=== PATIENT | female | born 1985 | race Caucasian/White ===

== ENCOUNTER 2016-10-14 18:38 | Emergency (ER) | payer MEDICAID ==
[2016-10-14] MEDS ORDERED: ONDANSETRON 4 MG INJ ONE (20:45)
[2016-10-14] MEDS ORDERED: FAMOTIDINE 20 MG INJ ONE (20:47)
[2016-10-14 22:10] LABS: ADD SCAN DIFF NO
[2016-10-14 22:14] LABS: ABNORMAL IP MESSAGE 1; BASOPHILS % 0.1 % (0.0-2.0); EOSINOPHILS % 0.1 % (0.0-7.0); HEMATOCRIT 30.6 % (37.0-47.0); HEMOGLOBIN 9.3 g/dl (12.0-16.0); LYMPHOCYTES # 1.9 10^3/ul (0.8-2.9); LYMPHOCYTES % 11.5 % (15.0-51.0); MEAN CORPUSCULAR HEMOGLOBIN 21.7 pg (29.0-33.0); MEAN CORPUSCULAR HGB CONC 30.4 g/dl (32.0-37.0); MEAN CORPUSCULAR VOLUME 71.3 fl (82.0-101.0); MEAN PLATELET VOLUME 11.2 fl (7.4-10.4); MONOCYTE # 1.8 10^3/ul (0.3-0.9); MONOCYTES % 10.9 % (0.0-11.0); NEUTROPHIL # 12.6 10^3/ul (1.6-7.5); PLATELET COUNT 312 10^3/UL (140-415); RED BLOOD COUNT 4.29 10^6/ul (4.20-5.40); RED CELL DISTRIBUTION WIDTH 17.9 % (11.5-14.5); WHITE BLOOD COUNT 16.4 10^3/ul (4.8-10.8)
[2016-10-14 22:30] LABS: ALBUMIN 4.8 g/dl (3.3-4.9); ALBUMIN/GLOBULIN RATIO 1.2; BILIRUBIN,INDIRECT 0.4 mg/dl (0-1.1); BILIRUBIN,TOTAL 0.4 mg/dl (0.2-1.3); CALCIUM 9.4 mg/dl (8.4-10.2); CREATININE 0.61 mg/dl (0.44-1.00); POTASSIUM 3.6 mmol/L (3.5-5.1); TOTAL PROTEIN 8.8 g/dl (6.1-8.1)
--- NOTE | 2016-10-14 23:03 | RADRPT ---
PROCEDURE: XR Chest. CLINICAL INDICATION: Cough. TECHNIQUE: AP view of the chest was obtained. COMPARISON: None available FINDINGS: The cardiomediastinal silhouette is within normal limits. The lungs are clear. No signs of pleural f luid or pneumothorax are seen. The osseous structures and soft tissues are unremarkable. IMPRESSION: 1. No evidence for active cardiopulmonary disease. RPTAT: HGAS .Clif Hurtado MD, MD Date Time Electronically viewed and signed by .Clif Hurtado MD, on 10/14/2016 22:48 .S/
[2016-10-14] MEDS ORDERED: ACETAMINOPHEN 325 MG TAB ONE (23:06)
[2016-10-15 00:07] LABS: ADD UMIC YES; UR BILIRUBIN (Dip) NEGATIVE (NEGATIVE); UR BLOOD (Dip) 1+ (NEGATIVE); UR CLARITY SLIGHTLY CLOUDY (CLEAR); UR COLOR LT. YELLOW (YELLOW); UR GLUCOSE (Dip) NEGATIVE (NEGATIVE); UR KETONES (Dip) 3+ (NEGATIVE); UR LEUKOCYTE ESTERASE (Dip) 1+ (NEGATIVE); UR NITRITE (Dip) NEGATIVE (NEGATIVE); UR TOTAL PROTEIN (Dip) 1+ (NEGATIVE); UR UROBILINOGEN (Dip) 0.2 E.U./dL (0.1-1.0)
[2016-10-15 00:10] LABS: URINE BLOOD (Dip) POC 2+ (NEGATIVE)
[2016-10-15] MEDS ORDERED: NITR-58 PO (00:15)
[2016-10-15] MEDS ORDERED: ONDA4TAB8 PO (00:16)
[2016-10-15] MEDS ORDERED: IBUP-1542 PO (00:16)
[2016-10-15 00:23] LABS: UR BACTERIA MODERATE; URINE RBCS 0-2 /HPF (0)
[2016-10-15 00:24] LABS: UR SQUAMOUS EPITHELIAL CELL FEW
[2016-10-15] MEDS ORDERED: IBUPROFEN 600 MG TAB PO ONE (00:30)
[2016-10-15 00:35] VITALS: BP 109/64; PULSE 90; RESP 16; TEMP 98.2
--- NOTE | 2016-10-15 01:39 | ERD ---
ER Documentation Chief Complaint Date/Time DATE: 10/15/16 TIME: 01:31 Chief Complaint Multiple complaints HPI This is a 31-year-old female that presents to the ER with multiple complaints. Patient has had a productive cough over the last week. Over the last 2 days patient has developed nausea and vomiting. Vomiting is nonbilious nonbloody, and she has had 3 episodes since yesterday. She denies any diarrhea. Patient also admits to epigastric pain. Epigastric pain is burning in quality and does not radiate anywhere. She does admit to fevers and chills. She has been taking Tylenol for her symptoms however they only take her symptoms away temporarily. Patient denies any urinary frequency or dysuria. She denies any flank pain. She is also complaining of a generalized headache. Denies any head trauma she denies any vision loss or vision changes. She has not had any loss of consciousness. ROS 12 point review of systems was done, all negative except per HPI. Medications Home Meds Active Scripts Ibuprofen* (Motrin*) 600 Mg Tab, 600 MG PO Q6, #30 TAB Prov:KYLE WISDOM 10/15/16 Ondansetron Hcl* (Zofran*) 4 Mg Tablet, 4 MG PO Q6H Y for NAUSEA AND OR VOMITING , #15 TAB Prov:KYLE WISDOM 10/15/16 Nitrofurantoin Monohyd Macrocr* (Macrobid*) 100 Mg Capsr, 100 MG PO BID for 7 Days, CAP Prov:KYLE WISDOM 10/15/16 Physical Exam Vitals Vital Signs Date Time Temp Pulse Resp B/P Pulse Ox O2 Delivery O2 Flow Rate FiO2 10/15/16 00:35 98.2 90 16 109/64 99 Room Air Physical Exam GENERAL: The patient is well developed and appropriate for usual state of health , in no apparent distress. HEENT: Atraumatic. Conjunctivae are pink. Pupils equal, round, and reactive to light. Extraocular muscles are grossly intact. Bilateral tympanic membranes are clear with no evidence of erythema, bulging or perforation. No sinus tenderness. NECK: C-spine is soft and supple. There is no cervical lymphadenopathy. CHEST: Clear to auscultation bilaterally. There are no rales, wheezes or rhonchi. HEART: Regular rate and rhythm. No murmurs, clicks, rubs or gallops. EXTREMITIES: Equal pulses bilaterally. There is no peripheral clubbing, cyanosis or edema. No focal swelling or erythema. Full range of motion. Grossly neurovascularly intact. NEURO: Alert and oriented. Cranial nerves II through XII are intact. Motor strength in all 4 extremities with 5/5 strength. Sensation grossly intact. Normal speech and gait. Negative Rhomberg. +2 DTRs. SKIN: There is no apparent rash or petechia. The skin is warm and dry. Result Diagram: 10/14/16 2100 10/14/16 2100 Results 24 hrs Laboratory Tests Test 10/14/16 21:00 10/15/16 00:14 White Blood Count 16.410^3/ul Red Blood Count 4.2910^6/ul Hemoglobin 9.3g/dl Hematocrit 30.6% Mean Corpuscular Volume 71.3fl Mean Corpuscular Hemoglobin 21.7pg Mean Corpuscular Hemoglobin Concent 30.4g/dl Red Cell Distribution Width 17.9% Platelet Count 70757^3/UL Mean Platelet Volume 11.2fl Neutrophils % 77.0% Lymphocytes % 11.5% Monocytes % 10.9% Eosinophils % 0.1% Basophils % 0.1% Nucleated Red Blood Cells % 0.0/100WBC Neutrophils # 12.610^3/ul Lymphocytes # 1.910^3/ul Monocytes # 1.810^3/ul Eosinophils # 0.010^3/ul Basophils # 0.010^3/ul Nucleated Red Blood Cells # 0.010^3/ul Urine Color LT. YELLOW Urine Clarity SLIGHTLY CLOUDY Urine pH 6.0 Urine Specific [place] 1.020 Urine Ketones 3+ Urine Nitrite NEGATIVE Urine Bilirubin NEGATIVE Urine Urobilinogen 0.2 E.U./dL Urine Leukocyte Esterase 1+ Urine Microscopic RBC 0-2/HPF Urine Microscopic WBC 10-25/HPF Urine Squamous Epithelial Cells FEW Urine Bacteria MODERATE Urine Hemoglobin 1+ Urine Glucose NEGATIVE% Urine Total Protein 1+ Urine Test NEGATIVE Sodium Level 138mmol/L Potassium Level 3.6mmol/L Chloride Level 101mmol/L Carbon Dioxide Level 23mmol/L Anion Gap 18 Blood Urea Nitrogen 8mg/dl Creatinine 0.61mg/dl Glucose Level 103mg/dl Calcium Level 9.4mg/dl Total Bilirubin 0.4mg/dl Direct Bilirubin 0.00mg/dl Indirect Bilirubin 0.4mg/dl Aspartate Amino Transf (AST/SGOT) 25IU/L Alanine Aminotransferase (ALT/SGPT) 41IU/L Alkaline Phosphatase 111IU/L Total Protein 8.8g/dl Albumin 4.8g/dl Globulin 4.00g/dl Albumin/Globulin Ratio 1.20 Lipase 28U/L Bedside Urine pH (LAB) 5.5 Bedside Urine Protein (LAB) 2+ Bedside Urine Glucose (UA) Negative Bedside Urine Ketones (LAB) 2+ Bedside Urine Blood 2+ Bedside Urine Nitrite (LAB) Positive Bedside Urine Leukocyte Esterase (L 1+ Current Medications Medications (Trade) Dose Ordered Sig/Cassidy Route PRN Reason Start Time Stop Time Status Last Admin Dose Admin Ondansetron HCl (Zofran Inj) 4 mg STK-MED ONCE .ROUTE 10/14/16 20:45 10/14/16 20:46 DC Famotidine (Pepcid Iv) 20 mg STK-MED ONCE .ROUTE 10/14/16 20:47 10/14/16 20:48 DC Acetaminophen (Tylenol Tab) 325 mg STK-MED ONCE .ROUTE 10/14/16 23:06 10/14/16 23:07 DC Ibuprofen (Motrin) 600 mg ONCE ONCE PO 10/15/16 00:30 10/15/16 00:31 DC 10/15/16 00:25 Procedures/MDM EKG was taken and read by Dr. Meyer 94 bpm, no ST elevation or t wave inversion. Labs were reviewed there was an elevation in patients WBC- likely 2/2 URI + UTI. No electrolyte abnormalities, no transaminitis, no elevation in lipase + microcytic anemia This is a 31-year-old female presents to the ER with multiple complaints. Differential diagnosis includes but is not limited to viral illness, influenza, otitis media, strep throat, pneumonia, UTI, pyelonephritis, GERD, pancreatitis, cholecystitis, meningitis, sepsis. Patient has had a cough over the last week, however there is no evidence of pneumonia on x-ray and patient's lung examination is completely benign. Suspicion for intrathoracic abnormality is low. Patient was found to have a urinary tract infection which could be causing her nausea vomiting and headache. Nausea vomiting and headache likely be because of a viral illness as well. Patient will be treated for urinary tract infection with Macrobid. Suspicion for pyelonephritis is low as patient does not have any flank tenderness. In regards to patient's epigastric pain or pancreatitis is low as lipase is normal, I doubt cholecystitis as patient does not have any right upper quadrant pain and patient's liver enzymes, bilirubin is normal. She likely has epigastric pain secondary to vomiting and decreased appetite. Patient is neurologically intact with no focal neurological deficits I doubt meningitis or any other intracranial abnormality. Patient will also be sent home with Terri. She is to follow-up with her primary care doctor within 1-2 days return to ER sooner if symptoms worsen. My medical decision making was shared with the patient she understands and agrees with plan. Departure Diagnosis: Primary Impression: UTI (urinary tract infection) Condition: Stable Patient Instructions: Understanding Urinary Tract Infections (UTIs) Additional Instructions: Call your primary care doctor TOMORROW for an appointment during the next 1-2 days.See the doctor sooner or return here if your condition worsens before your appointment time. KYLE WISDOM Oct 15, 2016 01:39
== END 2016-10-15 00:36 | disposition home or self-care (01) ==
LOC: E/R 18:38 → FTE 10-15 00:36
DX: J06.9 Acute upper respiratory infection, unspecified (principal); R11.2 Nausea with vomiting, unspecified; R10.13 Epigastric pain
CPT/HCPCS: 71010; 80053; 81001; 83690; 84703; 85025; 93005; J2405; Z7610; 81003